=== PATIENT | male | born 1975 | race Caucasian/White ===

== ENCOUNTER → 2016-11-13 | Outpatient (REF) | payer BC | LOC: M LAB REF 15:07 | PROVIDERS: ATTEND Internal Medicine | DX: Z11.59 Encounter for screening for other viral diseases (principal) ==

== ENCOUNTER → 2016-12-28 | Outpatient (REF) | payer BC | LOC: M LAB REF 16:36 | PROVIDERS: ATTEND Nurse Practitioner Family | DX: Z20.9 Contact with and (suspected) exposure to unspecified communicable disease (principal) ==